=== PATIENT | female | born 1985 | race Caucasian/White ===

== ENCOUNTER 2016-11-20 14:41 | Emergency (ER) | payer OTHER ==
--- NOTE | 2016-11-20 14:47 | PDOC ---
History of Present Illness - History of Present Illness Initial Comments: 11/20/16 15:11 The patient is a 31 year old female, with a significant past medical history of anxiety and depression, who presents to the emergency department sent by PCP for three days of persistent hemoptysis, melena, and abdominal pain. The patient reports numerous episodes of vomiting bright red blood. The patient also reports dark black stool for the past 2 days. The patient states she has not eaten anything in 2 days because she feels nauseous and has diffuse abdominal pain. She reports using pepto bismol yesterday with little to no relief of her symptoms. The patient reports her stomach is weak at baseline and continues to explain that her gag reflex is very easily triggered. She denies chest pain, shortness of breath, headache and dizziness. She denies fever, chills, diarrhea and constipation. She denies dysuria, frequency, urgency and hematuria. Allergies: NKDA <Susu Yun - Last Filed: 11/20/16 15:17> <Hollie Fleming - Last Filed: 11/20/16 21:40> - General Chief Complaint: Bleeding from Anus Stated Complaint: upper and lower gi bleed Time Seen by Provider: 11/20/16 14:47 Past History <Susu Yun - Last Filed: 11/20/16 15:17> - Reproductive History Therapeutic (s) & number: Yes (2 DAYS AGO) - Immunization History Immunization Up to Date: Yes - Psycho/Social/Smoking Cessation Hx Anxiety: No Suicidal Ideation: No Smoking History: Former smoker Have you smoked in the past 12 months: Yes Number of Cigarettes Smoked Daily: 0 If you are a former smoker, when did you quit?: 2014 Hx Alcohol Use: Yes Drug/Substance Use Hx: No Substance Use Type: None <Hollie Fleming - Last Filed: 11/20/16 21:40> - Past Medical History Allergies/Adverse Reactions: Allergies Allergy/AdvReac Type Severity Reaction Status Date / Time No Known Allergies Allergy Verified 11/20/16 14:43 Home Medications: Ambulatory Orders Lamotrigine [Lamictal] 25 mg PO DAILY 11/19/15 Alprazolam [Xanax] 2 mg PO HS 11/20/16 Ondansetron [Zofran Odt -] 4 mg SL TID PRN #21 od.tablet 11/20/16 Oxycodone HCl/Acetaminophen [Percocet 5/325 -] 2 tab PO PRN PRN 11/20/16 Pantoprazole Sodium [Protonix -] 40 mg PO DAILY #30 tablet.ec 11/20/16 Review of Systems - Review of Systems Able to Perform ROS?: Yes Comments:: 11/20/16 15:11 GENERAL/CONSTITUTIONAL: No fever or chills. No weakness. HEAD, EYES, EARS, NOSE AND THROAT: No change in vision. No ear pain or discharge. No sore throat. CARDIOVASCULAR: No chest pain or shortness of breath. RESPIRATORY: No cough, wheezing, or hemoptysis. GASTROINTESTINAL: (+) melena, nausea, vomiting, hemoptysis, abdominal cramps. No diarrhea or constipation. GENITOURINARY: No dysuria, frequency, or change in urination. MUSCULOSKELETAL: No joint or muscle swelling or pain. No neck or back pain. SKIN: No rash NEUROLOGIC: No headache, vertigo, loss of consciousness, or change in strength/ sensation. ENDOCRINE: No increased thirst. No abnormal weight change. HEMATOLOGIC/LYMPHATIC: No anemia, easy bleeding, or history of blood clots. ALLERGIC/IMMUNOLOGIC: No hives or skin allergy. <Susu Yun - Last Filed: 11/20/16 15:17> *Physical Exam - Vital Signs Last Vital Signs Temp Pulse Resp BP Pulse Ox 98.2 F 93 H 20 134/90 100 11/20/16 14:42 11/20/16 14:42 11/20/16 14:42 11/20/16 14:42 11/20/16 14:42 - Physical Exam Comments: 11/20/16 15:12 GENERAL: Awake, alert, and fully oriented, in no acute distress HEAD: No signs of trauma EYES: PERRLA, EOMI, sclera anicteric, conjunctiva clear ENT: (+)Dry mucosa. Auricles normal inspection, hearing grossly normal, nares patent, oropharynx clear without exudates. NECK: Normal ROM, supple, no lymphadenopathy, JVD, or masses LUNGS: Breath sounds equal, clear to auscultation bilaterally. No wheezes, and no crackles HEART: Regular rate and rhythm, normal S1 and S2, no murmurs, rubs or gallops ABDOMEN: Soft, nontender, normoactive bowel sounds. No guarding, no rebound. No masses EXTREMITIES: Normal range of motion, no edema. No clubbing or cyanosis. No cords, erythema, or tenderness NEUROLOGICAL: Cranial nerves II through XII grossly intact. Normal speech, normal gait SKIN: Warm, Dry, normal turgor, no rashes or lesions noted. <Susu Yun - Last Filed: 11/20/16 15:17> ED Treatment Course - LABORATORY CBC & Chemistry Diagram: 11/20/16 15:01 11/20/16 15:01 <Hollie Fleming - Last Filed: 11/20/16 21:40> Medical Decision Making - Medical Decision Making Patient was able to tolerate a PO challenge without any vomiting. She did not have any episodes of vomiting or diarrhea in the ED (she has not had a BM since this morning). Guaiac was normal. I suspect this may be PUD, and counseled her multiple times that she needs outpatient GI follow-up. At this point, her vital signs are stable, H&H is stable. She respnded well to protonix, zofran, and IVF. We discussed the findings on her urine tox, and I explained that using marijuana can predispose to cyclic vomiting, which may have caused her to retch enough to cause a Kylah-Avendaño tear. The dark stools may be related to pepto- bismol, but may also be due to an ulcer. Will need close follow-up. <Hollie Fleming - Last Filed: 11/20/16 21:40> *DC/Admit/Observation/Transfer - Attestations Scribe Attestion: 11/20/16 15:12 Documentation prepared by Susu Yun, acting as medical physics researcher for Hollie Fleming MD, <Susu Yun - Last Filed: 11/20/16 15:17> - Discharge Dispostion Admit: No <Hollie Fleming - Last Filed: 11/20/16 21:40> Diagnosis at time of Disposition: Vomiting Qualifiers: Vomiting type: unspecified Vomiting Intractability: non-intractable Nausea presence: with nausea Qualified Code(s): R11.2 - Nausea with vomiting, unspecified - Discharge Dispostion Disposition: HOME Condition at time of disposition: Improved - Prescriptions Prescriptions: Pantoprazole Sodium [Protonix -] 40 mg PO DAILY #30 tablet.ec Ondansetron [Zofran Odt -] 4 mg SL TID PRN #21 od.tablet PRN Reason: Nausea And/Or Vomiting - Patient Instructions Printed Discharge Instructions: DI for Vomiting -- Adult
[2016-11-20] MEDS ORDERED: ONDANSETRON 4 MG/2 ML VIAL IVPUSH ONE (14:55)
[2016-11-20] MEDS ORDERED: SODIUM CHLORIDE 1,000 ML IV STA (14:55)
[2016-11-20 15:10] VITALS: BP 134/90; PULSE 93; TEMP 98.2; BMI 22.8
[2016-11-20] MEDS ORDERED: ONDANSETRON 4 MG/2 ML VIAL ONE (15:12)
[2016-11-20 15:30] LABS: URINE APPEARANCE Clear; URINE BILIRUBIN Negative (NEGATIVE); URINE BLOOD Trace-lysed (NEGATIVE); URINE COLOR YELLOW; URINE GLUCOSE (UA) Negative (NEGATIVE); URINE KETONE Negative (NEGATIVE); URINE LEUK ESTERASE Trace (NEGATIVE); URINE NITRITE Negative (NEGATIVE); URINE PROTEIN Trace (NEGATIVE); URINE UROBILINOGEN 0.2 E.U/dl (0.2-1.0)
[2016-11-20 15:31] LABS: BASOPHIL 0.2 % (0-2.0); EOSINOPHIL 2.1 % (0-4.5); MCHC 33.4 g/dl (32.0-36.0); MEAN CELL VOLUME 95.9 fl (80-96); MEAN PLT VOLUME 7.7 fl (7.5-11.1); PLATELET COUNT 312 K/MM3 (134-434); RDW 12.5 % (11.6-15.6); WHITE BLOOD COUNT 9.8 K/mm3 (4.0-10.0)
[2016-11-20] MEDS ORDERED: PANTOPRAZOLE SODIUM 40 MG in SODIUM CHLORIDE 100 ML IVPB ONE (15:37)
[2016-11-20] MEDS ORDERED: PANTOPRAZOLE SODIUM 40 MG VIAL ONE (15:46)
[2016-11-20 15:52] LABS: ALBUMIN 4.5 g/dl (3.5-5.0); ALK PHOS 39 U/L (32-92); ANION GAP 9 (8-16); BILIRUBIN,TOTAL 0.6 mg/dl (0.2-1.0); CALCIUM 9.3 mg/dl (8.4-10.2); CO2 23 mmol/L (22-28); CREATININE 0.9 mg/dl (0.6-1.3); GLUCOSE,RANDOM 91 mg/dl (74-106); SGOT/AST 26 U/L (10-42); SGPT/ALT 29 U/L (10-40); TOT PROT 7.5 g/dl (6.4-8.3)
[2016-11-20 17:49] LABS: URINE MARIJUANA THC POSITIVE ng/ml (CUTOFF=50)
== END 2016-11-20 18:14 | disposition home or self-care (01) ==
LOC: FER 14:41
PROC: 3E033GC Introduction of Other Therapeutic Substance into Peripheral Vein, Percutaneous Approach (ICD-10-PCS; principal; 2016-11-20)
PROC: 3E0337Z Introduction of Electrolytic and Water Balance Substance into Peripheral Vein, Percutaneous Approach (ICD-10-PCS; 2016-11-20)
DX: R11.2 Nausea with vomiting, unspecified (principal); F41.9 Anxiety disorder, unspecified; Z87.891 Personal history of nicotine dependence; F32.9 Major depressive disorder, single episode, unspecified
CPT/HCPCS: 36415; 80053; 80307; 81003; 82272; 83690; 84703; 85025; 96361; 96365; 96375; 99284-25

== ENCOUNTER 2018-07-14 17:52 | Emergency (ER) | payer OTHER ==
--- NOTE | 2018-07-14 18:07 | PDOC ---
History of Present Illness - General Chief Complaint: Pain Stated Complaint: LEFT FOOT INTERMITTENT SWELLING AND PAIN SINCE BRONWYN Time Seen by Provider: 07/14/18 18:02 - History of Present Illness Initial Comments: 07/14/18 18:05 33 yo F with h/o anxiety, depression, s/p bunionectomy, and flatfoot reconstruction (03/06/18) who p/w LLE swelling and pain. Patient reports now improved circumferential LLE swelling from ankle to forefoot beginning (07/09/18 ) and resolved (07/13/18). Swelling improved with elevation at night. Patient with continued diffuse, dull, LLE pain extending from ankle to forefoot. Pain worse with weight bearing and ambulation. Denies recent trauma to foot or ankle. Pain not improved with Percocet. Completed 1 week course of Keflex post op, and completed rehabilitation. Patient denies N/V, F,C, CP, SOB, urinary complaints, abdominal pain, diarrhea, constipation, lightheadedness, weakness, sensory changes, skin changes. PMHx: as noted above. Denies h/o DVT, OCP use, recent immobilization. ROS: as noted SHx: Denies IVDA. Allergies: NKDA Past History - Past Medical History Allergies/Adverse Reactions: Allergies Allergy/AdvReac Type Severity Reaction Status Date / Time No Known Allergies Allergy Verified 07/14/18 17:54 Home Medications: Ambulatory Orders Lamotrigine [Lamictal] 50 mg PO DAILY 11/19/15 Hydroxyzine HCl 1 tab PO HS 07/14/18 Psychiatric Problems: Yes (depression) - Reproductive History Therapeutic (s) & number: Yes (2 DAYS AGO) - Immunization History Immunization Up to Date: Yes - Suicide/Smoking/Psychosocial Hx Smoking History: Former smoker Have you smoked in the past 12 months: Yes Number of Cigarettes Smoked Daily: 0 If you are a former smoker, when did you quit?: 2014 'Breaking Loose' booklet given: 11/20/16 Hx Alcohol Use: Yes Drug/Substance Use Hx: No Substance Use Type: None Review of Systems - Review of Systems Comments:: 07/14/18 18:05 GENERAL/CONSTITUTIONAL: No fever or chills. No weakness. HEAD, EYES, EARS, NOSE AND THROAT: No change in vision. No ear pain or discharge. No sore throat. CARDIOVASCULAR: No chest pain or shortness of breath RESPIRATORY: No cough, wheezing, or hemoptysis. GASTROINTESTINAL: No nausea, vomiting, diarrhea or constipation. GENITOURINARY: No dysuria, frequency, or change in urination. MUSCULOSKELETAL: + Left foot and ankle pain. No joint or muscle swelling. No neck or back pain. SKIN: No rash NEUROLOGIC: No headache, vertigo, loss of consciousness, or change in strength/ sensation. ENDOCRINE: No increased thirst. No abnormal weight change HEMATOLOGIC/LYMPHATIC: No anemia, easy bleeding, or history of blood clots. ALLERGIC/IMMUNOLOGIC: No hives or skin allergy. *Physical Exam - Physical Exam Comments: 07/14/18 18:06 GENERAL: Awake, alert, and fully oriented, in no acute distress HEAD: No signs of trauma, normocephalic, atraumatic EYES: PERRLA, EOMI, sclera anicteric, conjunctiva clear ENT:Hearing grossly normal, nares patent, oropharynx clear without exudates. Moist mucosa NECK: Normal ROM, supple, no lymphadenopathy, JVD, or masses LUNGS: No distress, speaks full sentences, clear to auscultation bilaterally HEART: Regular rate and rhythm, normal S1 and S2, no murmurs, rubs or gallops, peripheral pulses normal and equal bilaterally. ABDOMEN: Soft, nontender, normoactive bowel sounds. No guarding, no rebound. No masses EXTREMITIES : Normal inspection, Normal range of motion, no edema. No clubbing or cyanosis. LLE: + L sided 6 cm dorsal incision scar on medial anterior forefoot, and 2 c incision scar on calcaneous. Palpable and symmetric RT and DP pulses. Inability to tolerate weight on LLE, with + limping gait. Absent edema, or skin change. Absent wound, lesion, or dehiscence. SKIN: Warm, Dry, normal turgor, no rashes or lesions noted Medical Decision Making - Medical Decision Making 07/14/18 18:35 33 yo F with h/o anxiety, depression, s/p bunionectomy, and flatfoot reconstruction (03/06/18) who p/w LLE swelling and pain. VSS, AF, A&Ox3. LLE neurovascularly intact. R/o DVT LLE. R/o fracture/dislocation LLE. + Carver foot rules including midfoot ttp, and navicular ttp.. Lo suspicion osteomyelitis , cellulitis, abscess, PAD, compartment syndrome. Ed Course: Left Foot RAD LLE DUPLEX 07/14/18 18:47 If RAD and U/S are unremarkable and neg for DVT and fracture patiewnt is stable for d/c with return precautions. Advised to f/u with ortho and PMD. *DC/Admit/Observation/Transfer Diagnosis at time of Disposition: Left foot pain - Discharge Dispostion Condition at time of disposition: Stable Decision to Admit order: No - Referrals - Patient Instructions Additional Instructions: Please return to the emergency department with any new or worsening symptoms or concerns. Please follow up with your primary care physician within 72 hours. Can take Ibuprofen 600 mg every 4 hours as needed for pain control. - Post Discharge Activity - Attestations Physician Attestion: 07/14/18 18:06 I attest to the information provided in this note.
[2018-07-14 18:10] VITALS: BP 132/80; PULSE 96; TEMP 97.6; BMI 25.6
--- NOTE | 2018-07-14 18:39 | PDOC ---
Attending Attestation - HPI HPI: 07/14/18 19:45 The patient is a 33 year old female with a significant PMH of anxiety, depression and peptic ulcer disease (as a teenager) who presents to the emergency department with left foot pain for about 4 months. The patient reports that she had a flat foot reconstruction and bunionectomy in February of this year. She states that in the past week she has been experiencing worsening pain and swelling in her left foot. The patient states that her swelling is worsened with walking and relieved with rest. She reports that she tried to set up to bee seen my an orthopedic surgeon but couldnt be seen for several weeks. The patient was concerned about her intermittent swelling and constant pain so she came in to the ED. she also reports some associated bruising with her left foot pain. The patient denies any fall or injury. She denies any recent travel or history of blood clots, numbness, weakness, malodor or tingling sensation. She denies any other symptoms. She denies any fever, chills, nausea, vomiting, diarrhea, or urinary symptoms. She denies any chest pain, shortness or breath, headache or dizziness. The patient denies any other complaints. - Physicial Exam PE: 07/14/18 19:45 GENERAL: Awake, alert, and fully oriented, in no acute distress HEAD: No signs of trauma EYES: PERRLA, EOMI, sclera anicteric, conjunctiva clear ENT: Auricles normal inspection, hearing grossly normal, nares patent, oropharynx clear without exudates. Moist mucosa NECK: Normal ROM, supple, no lymphadenopathy, JVD, or masses LUNGS: Breath sounds equal, clear to auscultation bilaterally. No wheezes, and no crackles HEART: Regular rate and rhythm, normal S1 and S2, no murmurs, rubs or gallops ABDOMEN: Soft, nontender, normoactive bowel sounds. No guarding, no rebound. No masses EXTREMITIES: (+)surgical left foot scar. No cellulitis erythema, edema, calf pain or tenderness.Normal range of motion. No clubbing or cyanosis. No cords. Sensation intact throughout. 2 plus DP pulse. NEUROLOGICAL: Cranial nerves II through XII grossly intact. Normal speech, normal gait SKIN: Warm, Dry, normal turgor, no rashes or lesions noted. Documentation prepared by Garce Hermosillo, acting as medical radiation dosimetrist for Anton Granados MD. <Grace Hremosillo - Last Filed: 07/14/18 19:45> - Resident Resident Name: Jl Ochoa - ED Attending Attestation I have performed the following: I have examined & evaluated the patient, The case was reviewed & discussed with the resident, I agree w/resident's findings & plan, Exceptions are as noted - Medical Decision Making 07/14/18 18:47 A portion of this note was documented by scribe services under my direction. I have reviewed the details of the note, within reason, and agree with the documentation with the following case summary and management plan written by me. Patient treated in the ED. Nursing notes are reviewed and incorporated into the medical decision-making. Vital signs reviewed. Vital Signs Temp Pulse Resp BP Pulse Ox 97.6 F 96 H 16 132/80 100 07/14/18 17:53 07/14/18 17:53 07/14/18 17:53 07/14/18 17:53 07/14/18 17:53 33-year-old female with history of flatfoot reconstruction status post bunionectomy in February 2018 presents with several days of left lower extremity swelling and discomfort. This occurred several days ago and started to swell. The patient is a 21 denies any recent traveling. Denies history of blood clots. Stated swelling is occurred but the swelling had now resolved. Patient had attempted make outpatient appointments but the next appointment for a foot doctor was in 2 weeks. Her friends which were nurse's advised patient to get checked in the ER. The patient's symptoms are now resolved. Could this have been edema secondary to inflammation or gravity dependent? There are no skin changes to suggest cellulitis at this time. I agree with resident's finding rule out DVT. If the old shot an x-ray is negative for acute processes, I will advise the patient to elevate the leg and follow-up with the [facility]. 07/14/18 20:46 Foot xray reviewed. No acute findings. Ultrasound reviewed. No blood clot. The patient is reasonably upset for her chronic foot pain and swelling. I advised her that today's findings demonstrate no acute findings, but that she would strongly benefit from a foot surgeon. The patient states that she agrees and she will follow up with an orthopedist. I discussed the physical exam findings, ancillary test results and final diagnoses with the patient. I answered all of the patient's questions. The patient was satisfied with the care received and felt comfortable with the discharge plan and treatment plan. The patient will call their primary care physician within 24 hours to arrange follow-up and will return to the Emergency Department with any new, persistant or worsening symptoms. <Anton Granados - Last Filed: 07/14/18 20:47> Discharge Disposition <Grace Hermosillo - Last Filed: 07/14/18 19:45> - Discharge Dispostion Last Admission D/C Date: 10/06/10 Decision to Admit order: No <RobertaAnton - Last Filed: 07/14/18 20:47> - Diagnosis Left foot pain - Discharge Dispostion Disposition: HOME Condition at time of disposition: Stable - Referrals Referrals: Minh Whitmore MD [Staff Physician] - Casey Mcneal MD [Staff Physician] - Carlin Pina MD [Staff Physician] - Adalid Lan MD [Staff Physician] - - Patient Instructions Printed Discharge Instructions: DI for Foot Pain Additional Instructions: Your xray and ultrasound is negative for acute fracture or blood clot. Please follow up with an orthopedist. Call to schedule an appointment. Please return to the emergency department with any new or worsening symptoms or concerns. Please follow up with your primary care physician within 72 hours. Can take Ibuprofen 600 mg every 6 hours as needed for pain control.
== END 2018-07-14 20:46 | disposition home or self-care (01) ==
LOC: FER 17:52
DX: M79.672 Pain in left foot (principal); F41.8 Other specified anxiety disorders
CPT/HCPCS: 73630-TC-LT; 93971-TC; 99282-25

== ENCOUNTER 2018-11-14 14:34 | Emergency (ER) | payer OTHER ==
--- NOTE | 2018-11-14 14:46 | PDOC ---
Attending Attestation - Resident Resident Name: Sasha Arce - ED Attending Attestation I have performed the following: I have examined & evaluated the patient, The case was reviewed & discussed with the resident, I agree w/resident's findings & plan, Exceptions are as noted - HPI HPI: 11/14/18 15:36 33yo female with 2 month hx of sob/cough/wheezing. Has been treated twice in the past 2 months with steroids and inhalers. States on friday her symptoms worsened and she states the cough worsened and now her chest hurts and she feels she cannot get air in. States she feels very tight. No f/c. No sore throat. No rhinorrhea. No abd pain. No n/v/d. NO dysuria. No le swelling, no recent travel, no calf cramping. States pain when she takes a deep breath. Pt denies rash. Pmhx of anxiety and depression, hx of PUD as a child. - Physicial Exam PE: 11/14/18 15:38 Gen: aaox3, tachypnic, tachy, coughing-bronchospastic cough heent: PERRLA, EOMI, posterior pharynx clear neck: supple, anterior chain lymphadenopathy heart: +s1s2 tachy lungs: coarse bs b/l, wheezing diffusely abd: soft, nt/nd +bs ext: no c/c/e - Medical Decision Making 11/14/18 14:46 I, Dr. Domenica Gomez, DO, attest that this document has been prepared under my direction and personally reviewed by me in its entirety. I further attest, that it accurately reflects all work, treatment, procedures and medical decision -making performed by me. 11/14/18 15:39 a/p: 33yo female with SOB/COUGH/WHEEZING -concern for RAD from bronchitis vs pna vs flu -will send labs, cxr, nebs, steroids, fluids -will need nebs x3 rounds -solumedrol -pt hypoxic upon arrival -dimer given pleuritic cp and hypoxia and tachy -will monitor and reassess 11/14/18 16:43 re-eval: cxr clear still wheezing after 2 duo nebs pulse ox 93% ra will need obs for RAD 11/14/18 16:43 discussed staying overnight and the patient states she cannot stay because she has a for her cousin romeo. States she will come back to the hospital after the . Discussed that her oxygen level is low and she should stay for obs and further treatment. Pt states she will sign out AMA. Discussed AMA decision in full detail and risk of low oxygen and Pt states she will wants to sign out AMA Note: The patient insists on leaving the emergency dept and is signing out against medical advice. The patient understands the risks and complications that may result from the refusal of medical care and admission which includes and permanent disability. The patient has the mental capacity of understanding the risks of refusing care and is capable of making an informed decision. The patient was instructed to return to the emergency department should she change her mind regarding medical care or should her condition worsen. The patient signed the Against Medical Advice form. 11/14/18 17:23 pt will sign out AMA Heart Score/ECG Review - ECG Intrepretation Comment:: 11/14/18 16:15 sinus at 89, 1st degree av block, t wave inversions inferior and laterally, incomplete rbbb, abnl ekg
[2018-11-14 14:48] VITALS: BP 111/68; TEMP 98.1; BMI 25.6
[2018-11-14] MEDS ORDERED: ALBUTEROL SO4 2.5/IPRATROPIUM 0.5 INH SOL 3 ML VIAL.NEB. NEB ONE ×7 (14:49→16:43)
[2018-11-14] MEDS ORDERED: KETOROLAC TROMETHAMINE 15 MG/ML VIAL IVPUSH ONE (15:01)
[2018-11-14] MEDS ORDERED: SODIUM CHLORIDE 0.9% 1000 ML INFUS.BAG IV ONE (15:01)
[2018-11-14] MEDS ORDERED: methylPREDNISolone NA SUCC 125 MG/2 ML VIAL IVPB ONE (15:02)
--- NOTE | 2018-11-14 15:03 | PDOC ---
History of Present Illness - General Chief Complaint: Respiratory Stated Complaint: COUGH & CHEST CONGESTION Time Seen by Provider: 11/14/18 14:41 - History of Present Illness Initial Comments: 11/14/18 14:59 2 months of persistent cough producing yellow phlegm with occasional blood streaks worse over 4 days associated with L lower rib tenderness when coughing and with turning given albuterol neb at urgent care which helped her slightly no fever recorded feels like when she had walking pneumonia when she was younger smoked for several years on and off, last smoked over 2 years ago. feels like she can't breathe and that the airway is tighter. Past History - Past Medical History Allergies/Adverse Reactions: Allergies Allergy/AdvReac Type Severity Reaction Status Date / Time No Known Allergies Allergy Verified 07/14/18 17:54 Home Medications: Ambulatory Orders Lamotrigine [Lamictal] 50 mg PO DAILY 11/19/15 Hydroxyzine HCl 1 tab PO HS 07/14/18 Albuterol 0.083% Nebulizer Nurys [Ventolin 0.083% Nebulizer Soln -] 1 neb NEB ONCE #1 vial 11/14/18 Benzonatate [Tessalon Pearls -] 100 mg PO TID #21 capsule 11/14/18 COPD: No GI Disorders: Yes (ULCER) Psychiatric Problems: Yes (depression) - Reproductive History Therapeutic (s) & number: Yes (2 DAYS AGO) - Immunization History Immunization Up to Date: Yes - Suicide/Smoking/Psychosocial Hx Smoking History: Former smoker Have you smoked in the past 12 months: No Number of Cigarettes Smoked Daily: 0 If you are a former smoker, when did you quit?: 2018 Information on smoking cessation initiated: No 'Breaking Loose' booklet given: 11/20/16 Hx Alcohol Use: No Drug/Substance Use Hx: No Substance Use Type: None *Physical Exam - Vital Signs Last Vital Signs Temp Pulse Resp BP Pulse Ox 98.1 F 96 H 20 111/68 92 L 11/14/18 14:36 11/14/18 14:36 11/14/18 14:36 11/14/18 14:36 11/14/18 14:36 - Physical Exam Comments: 11/14/18 14:58 wprse at L base inspiratory andexpiratory wheeze tenderness to L rib palpation bilateral cervical lymphadenopathy 11/14/18 16:16 Moderate Sedation - Procedure Monitoring Vital Signs: Procedure Monitoring Vital Signs Temperature 98.1 F 11/14/18 14:36 Pulse Rate 96 H 11/14/18 14:36 Respiratory Rate 20 11/14/18 14:36 Blood Pressure 111/68 11/14/18 14:36 O2 Sat by Pulse Oximetry (%) 92 L 11/14/18 14:36 ED Treatment Course - LABORATORY CBC & Chemistry Diagram: 11/14/18 15:20 11/14/18 15:20 - RADIOLOGY Radiology Studies Ordered: Category Date Time Status CHEST PA & LAT [RAD] Stat Radiology 11/14/18 14:53 Ordered - Medications Given in the ED: ED Medications Discontinued Medications Generic Name Dose Route Start Last Admin Trade Name Freq PRN Reason Stop Dose Admin Albuterol/Ipratropium 1 amp 11/14/18 14:49 11/14/18 14:58 Duoneb - NEB 11/14/18 14:50 1 amp ONCE ONE Administration Medical Decision Making - Medical Decision Making 11/14/18 15:16 ED Course: bronchitis vs atypical pna vs asthma vs mono vs influenza r/o PE ekg, cbc, cmp, flu swab, monoscreen, upreg, cxr duoneb, toradol, solumedrol 11/14/18 16:43 still with inspiratory and expiratory wheeze after 2 duoneb O2 sat 93 dose second duoneb liekly patietn will need admission for hypoxia unresponsive steroids nad duoneb, patient expresses desire to leave against medical advise 11/14/18 17:15 ddimer and influenza, negative patient given medication for tessalon perle and albuterol neb will leave [facility], given follow up instructions and strict return precautions. *DC/Admit/Observation/Transfer Diagnosis at time of Disposition: Cough, Shortness of breath, Chest congestion - Discharge Dispostion Disposition: AGAINST MEDICAL ADVICE Condition at time of disposition: Good - Prescriptions Prescriptions: Albuterol 0.083% Nebulizer Nurys [Ventolin 0.083% Nebulizer Soln -] 1 neb NEB ONCE #1 vial Benzonatate [Tessalon Pearls -] 100 mg PO TID #21 capsule - Referrals Referrals: Jakub Chi [Primary Care Provider] - - Patient Instructions Printed Discharge Instructions: DI for Cough -- Adult, DI for Viral Syndrome Additional Instructions: It is recommended that you be admitted for further observation in the hospital and treatment for your cough and shortness of breath. The risks of leaving the hospital without complete evaluation for your symptoms include , cardiac arrest, heart attack, stroke, loss of consciousness, respiratory distress and/or further difficulty breathing. These risks have been discussed with your for > 45min. You express understanding of these risks and still desire to leave the hospital against medical advice. It is recommended that you see your primary care doctor within 3-5 days for further workup and evaluation. Return to the ED if you experience worsening shortness of breath, coughing up bright red blood, fever > 102F, chest pain, loss of consciousness or lightheadedness. You have a prescription for Tessalon Perle and Albuterol Neb sent to your pharmacy. Please take medications as indicated. - Post Discharge Activity
[2018-11-14] MEDS ORDERED: methylPREDNISolone NA SUCC 125 MG/2 ML VIAL ONE (15:30)
[2018-11-14] MEDS ORDERED: KETOROLAC TROMETHAMINE 15 MG/ML VIAL ONE (15:31)
[2018-11-14 15:33] LABS: BASO % 0.3 % (0-2.0); HEMATOCRIT 42.2 % (32.4-45.2); LYMPH % 14.2 % (8-40); MCH 29.5 pg (25.7-33.7); MCHC 33.3 g/dl (32.0-36.0); MEAN CELL VOLUME 88.8 fl (80-96); MEAN PLT VOLUME 7.7 fl (7.5-11.1); MONO % 4.7 % (3.8-10.2); NEUT % 75.8 % (42.8-82.8); PLATELET COUNT 324 K/MM3 (134-434); RBC 4.75 M/mm3 (3.60-5.2); RDW 12.2 % (11.6-15.6); WHITE BLOOD COUNT 12.1 K/mm3 (4.0-10.8)
[2018-11-14 15:43] LABS: ALK PHOS 56 U/L (45-117); ANION GAP 8 MMOL/L (8-16); BILIRUBIN,TOTAL 0.7 mg/dl (0.2-1); BLOOD UREA NITROGEN 9 mg/dl (7-18); CALCIUM 9.4 mg/dl (8.5-10); CHLORIDE 104 mmol/L (98-107); CO2 24 mmol/L (21-32); CREATININE 0.8 mg/dl (0.55-1.3); GLUCOSE,RANDOM 117 mg/dl (74-106); SGOT/AST 25 U/L (15-37); SGPT/ALT 18 U/L (13-61); SODIUM 136 mmol/L (136-145); TOT PROT 6.9 g/dl (6.4-8.2)
[2018-11-14 17:10] VITALS: PULSE 94
--- NOTE | 2018-11-15 10:57 | EKG ---
Test Reason : Blood Pressure : / mmHG Vent. Rate : 089 BPM Atrial Rate : 089 BPM P-R Int : 220 ms QRS Dur : 078 ms QT Int : 384 ms P-R-T Axes : 053 054 -24 degrees QTc Int : 467 ms SINUS RHYTHM WITH 1ST DEGREE A-V BLOCK POSSIBLE LEFT ATRIAL ENLARGEMENT T WAVE ABNORMALITY, CONSIDER INFERIOR ISCHEMIA PROLONGED QT ABNORMAL ECG WHEN COMPARED WITH ECG OF 03-OCT-2010 01:13, T WAVE INVERSION NOW EVIDENT IN INFERIOR LEADS Confirmed by JOSE ALAN MD ([id number]) on 11/15/2018 10:57:32 AM Referred By: Confirmed By:JOSE ALAN MD
== END 2018-11-14 17:32 | disposition left against medical advice (07) ==
LOC: FER 14:34
PROC: 3E0F7GC Introduction of Other Therapeutic Substance into Respiratory Tract, Via Natural or Artificial Opening (ICD-10-PCS; principal; 2018-11-14)
PROC: 3E0333Z Introduction of Anti-inflammatory into Peripheral Vein, Percutaneous Approach (ICD-10-PCS; 2018-11-14)
PROC: 3E033GC Introduction of Other Therapeutic Substance into Peripheral Vein, Percutaneous Approach (ICD-10-PCS; 2018-11-14)
PROC: 3E0337Z Introduction of Electrolytic and Water Balance Substance into Peripheral Vein, Percutaneous Approach (ICD-10-PCS; 2018-11-14)
DX: R07.81 Pleurodynia (principal); R09.89 Other specified symptoms and signs involving the circulatory and respiratory systems; R06.02 Shortness of breath; R05 Cough; Z87.891 Personal history of nicotine dependence; F32.9 Major depressive disorder, single episode, unspecified
CPT/HCPCS: 36415; 71046-TC-FY; 80053; 84703; 85025; 85379; 86308; 87804; 93005; 99282-25; J7030

== ENCOUNTER 2019-11-23 11:40 | Emergency (ER) | payer OTHER ==
[2019-11-23 11:46] VITALS: BP 113/75; PULSE 71; TEMP 97.8; BMI 27.4
[2019-11-23 12:27] LABS: HCG,QUALITATIVE URINE NEGATIVE
[2019-11-23 12:40] LABS: EPITHELIAL CELLS FEW /hpf
[2019-11-23] MEDS ORDERED: ACETAMINOPHEN 325 MG TABLET (FP) PO ONE (12:53)
--- NOTE | 2019-11-23 12:55 | PDOC ---
History of Present Illness - General Chief Complaint: Vaginal Bleeding Stated Complaint: VAGINAL BLEEDING, ABD PAIN Time Seen by Provider: 11/23/19 11:46 - History of Present Illness Initial Comments: Grecia Portillo is a 34yo woman with a PMH of depression, suboxone use, molar , known L ovarian cyst who presents with low abdominal pain, L>R, and vaginal bleeding since this morning. She also reports hand pain and numbness with typing; the symptoms also occur while laying down but resolve with changing arm position. Ms Portillo additionally c/o dry skin and increased hair loss. The hand numbness, dry skin, and hair loss have been present for several months. She is concerned that her thyroid is low as her mother had low thyroid. 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 This morning, she woke up "with blood everywhere" and severe low abdominal cramping. The symptoms were similar to her typical period, but she feels it is not the correct time has she generally has a very regular menstrual cycle. She took some ibuprofen with improvement in the pain. Due to her previous molar , she was concerned that it had come back and was causing cancer, as she was told that was a risk. She says that there is no possibility she is currently . 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 Past History - Past Medical History Allergies/Adverse Reactions: Allergies Allergy/AdvReac Type Severity Reaction Status Date / Time No Known Allergies Allergy Verified 11/23/19 11:41 Home Medications: Ambulatory Orders Alprazolam [Xanax] 1 mg PO ASDIR PRN 11/23/19 Buprenorphine/Naloxone [Suboxone 2 mg/0.5MG Sl Film -] 1 each SL DAILY 11/23/19 Lamotrigine [Lamictal] 200 mg PO DAILY 11/23/19 COPD: No GI Disorders: Yes (ULCER) Psychiatric Problems: Yes (depression) - Reproductive History Therapeutic (s) & number: Yes (2 DAYS AGO) - Immunization History Immunization Up to Date: Yes - Psycho Social/Smoking Cessation Hx Smoking History: Unknown if ever smoked Have you smoked in the past 12 months: Yes Number of Cigarettes Smoked Daily: 0 If you are a former smoker, when did you quit?: 2014 'Breaking Loose' booklet given: 11/20/16 Hx Alcohol Use: Yes Drug/Substance Use Hx: No Substance Use Type: None Review of Systems - Review of Systems Able to Perform ROS?: No Comments:: General: No fevers, no chills, no weight or appetite change, no malaise HEENT: No changes in vision, no changes in hearing, no congestion, no sore throat CV: No chest pain, no palpitations, no LE edema Pulm: No SOB, no cough, no wheezing GI: No nausea or vomiting, no change in bowel habits, no melena : No frequency, no urgency, no dysuria. See HPI Musc: No back pain, no joint swelling, no recent injury Skin: No rash, no lesions, no erythema Endo/Rheum: No excessive thirst, no heat/cold intolerance. +hair loss, +dry skin Heme: No unusual bruising or bleeding, no swollen glands Neuro: No syncope, no numbness/tingling, no focal weakness Vasc: No claudication Psych: No recent change in mood, no SI or HI *Physical Exam - Vital Signs Last Vital Signs Temp Pulse Resp BP Pulse Ox 97.8 F 71 18 113/75 100 11/23/19 11:40 11/23/19 11:40 11/23/19 11:40 11/23/19 11:40 11/23/19 11:40 - Physical Exam General: Comfortable, no acute distress HEENT: Atraumatic, PERRL, EOMI, MMM, voice normal, normal neck ROM Cards: RRR, no murmur appreciated Pulm: Comfortable on room air, clear to auscultation bilaterally Abd: Soft, nontender, nondistended : Normal external genitalia. Small amount of dark red blood in vaginal canal. No CMT, no adnexal TTP Ext: Atraumatic. No LE edema. ROM intact. WWP Skin: Normal color. Patches of dry, scaly skin on b/l hands c/w eczema Neuro: A&Ox3, CN grossly intact, normal speech, motor/sensory grossly intact and symmetric Psych: Mood appropriate to situation ED Treatment Course - LABORATORY CBC & Chemistry Diagram: 11/23/19 13:05 - ADDITIONAL ORDERS Additional order review: Laboratory Results 11/23/19 11:45 Urine Color Yellow Urine Appearance Clear Urine pH 5.5 Urine Protein Negative Urine Glucose (UA) Negative Urine Ketones Negative Urine Blood 2+ H Urine Nitrite Negative Urine Bilirubin Negative Urine Urobilinogen 0.2 Ur Leukocyte Esterase Negative Urine RBC 20-40 Urine WBC 0-2 Ur Transition Epith Cell Few Urine HCG, Qual Negative - RADIOLOGY Radiology Studies Ordered: Category Date Time Status TRANSVAGINAL ULTRASOUND US [US] Stat Ultrasound 11/23/19 12:53 Ordered Medical Decision Making - Medical Decision Making 11/23/19 12:54 Grecia Portillo is a 34yo woman with a PMH of depression, suboxone use, molar , known L ovarian cyst who presents with multiple complaints including low abdominal pain, L>R, and vaginal bleeding that started today. She also reports hand pain and numbness with typing for several months as well as dry skin and increased hair loss. She is concerned about the symptoms as her mother has low thyroid, and she had a molar last year that she is concerned came back. - Ddx includes abnormal menstrual period, , miscarriage, ruptured cyst. Less likely ovarian torsion as main complaint is vaginal bleeding - Hand pain, numbness most likely carpal tunnel. Will recommend symptomatic treatment, PMD follow up. Dry skin c/w eczema. Will check TSH, but pt advised to follow up with her PMD - CBC, CMP, TSH, UA, UCx, urine preg - TVUS - Acetaminophen 11/23/19 15:58 - US without any significant abnormalities - Labs unremarkable - D/w patient. Will give perfect bind machine operator to follow up. Should see PMD within the next 1-2 weeks as well. Discussed with Dr Alexis Hodges PGY2 Discharge - Discharge Information Problems reviewed: Yes Clinical Impression/Diagnosis: Pelvic pain Condition: Stable Disposition: HOME - Admission No - Follow up/Referral Referrals: Minh Chi MD [Primary Care Provider] - [facility] [Provider Group] - Patient Discharge Instructions Patient Printed Discharge Instructions: DI for Pelvic Pain Additional Instructions: Discharge Instructions: You were seen in the emergency department for lower abdominal pain and vaginal bleeding. Your blood tests and ultrasound did not show any concerning abnormalities. Home Care and Follow Up: - You may use over the counter medications as needed for pain at home. 650- 1000mg acetaminophen (Tylenol) or 600mg ibuprofen (Motrin or Advil) can be used every 6-8 hours. If needed for continued pain, these medications may be alternated every 3-4 hours. For example, if you take ibuprofen at 9am, you may take acetaminophen at noon, ibuprofen at 3pm, etc. - It is strongly recommended that you take ibuprofen with food to help prevent stomach irritation. - You may buy a numbing patch that contains lidocaine (the patch is 4% lidocaine ) that can be placed over the areas of greatest pain. The lidocaine patch may be placed for 12 hours then removed for 12 hours. - Try using an ice pack for 20 minutes every hour or a heating pad for additional pain control. These should NOT be used over the lidocaine patch, but you may place them over the areas of pain while the patch is off. - Do not stop moving around. As much as you can tolerate, continue to do light exercise and stretching exercises. Increase your activity level as much as you can tolerate daily. - Please see a perfect bind machine operator within the next 1-2 weeks for follow up. You have been given information for the [facility] - Seek immediate medical care if you have significant worsening of your symptoms , you are soaking through multiple pads per hour for at least 2-3 hours, you become short of breath or lightheaded, or you have any other medical emergency. - Post Discharge Activity
[2019-11-23 13:20] LABS: BASO % 0.4 % (0-2.0); EOS % 2.1 % (0-4.5); HEMATOCRIT 38.3 % (32.4-45.2); HEMOGLOBIN 13.1 GM/dl (10.7-15.3); MCH 31.4 pg (25.7-33.7); MCHC 34.2 g/dl (32.0-36.0); MEAN CELL VOLUME 91.6 fl (80-96); MEAN PLT VOLUME 7.9 fl (7.5-11.1); MONO % 4.8 % (3.8-10.2); NEUT % 75.7 % (42.8-82.8); PLATELET COUNT 275 K/MM3 (134-434); RBC 4.18 M/mm3 (3.60-5.2); RDW 12.7 % (11.6-15.6); WHITE BLOOD COUNT 10.1 K/mm3 (4.0-10.8)
[2019-11-23] MEDS ORDERED: ACETAMINOPHEN 325 MG TABLET (FP) ONE (13:25)
--- NOTE | 2019-11-23 13:45 | PDOC ---
Attending Attestation - Resident Resident Name: Kitty Hodges - ED Attending Attestation I have performed the following: I have examined & evaluated the patient, The case was reviewed & discussed with the resident, I agree w/resident's findings & plan, Exceptions are as noted - HPI HPI: 11/23/19 18:27 34 years old past medical history significant for ovarian cyst presents emergency department with sudden onset lower abdominal discomfort now improved Patient also with complaint of bilateral hand tingling when she wakes up in the morning Abdominal comfort was sudden in onset and is gradually resolving it is associated with irregular menses - Physicial Exam PE: 11/23/19 18:27 Vitals: Triage Vital signs reviewed General Appearance: No acute distress, well nourished well developed, Head: Atraumatic, Neck: Supple; no Nucal rigidity Chest Wall: Nontender Cardiac: Regular rate and rhythym, no murmurs, no rubs, no gallops, Lungs: Clear to auscultation bilateral, good air movement bilaterally, Abdomen: Soft, non distended, normal bowel sounds, non tender to palpation Extremities: Full range of motion to all extremities, no cyanosis, clubbing, or edema Skin: Warm and dry, no rashes or lesions, no rash, no petechiae Psych: Normal mood, normal affect - Medical Decision Making 11/23/19 18:27 Well-appearing no apparent distress history and examination reassuring no abdominal pain on exam transvaginal ultrasound demonstrates no acute pathology patient feels much better differential diagnosis includes ruptured ovarian cyst versus gas for his constipation. No fever no white count labs otherwise within normal limits she will follow-up with her primary doctor as well as [facility] [employer] this week Findings, need for follow-up and strict return instructions discussed with patient.
== END 2019-11-23 16:10 | disposition home or self-care (01) ==
LOC: FER 11:40
DX: R10.2 Pelvic and perineal pain (principal); F32.9 Major depressive disorder, single episode, unspecified; F11.90 Opioid use, unspecified, uncomplicated
CPT/HCPCS: 36415; 76830-TC; 76856-TC; 81003; 81015; 84443; 84703; 85025; 87086; 99284-25

== ENCOUNTER 2022-01-27 07:01 | Emergency (ER) | payer OTHER ==
[2022-01-27 07:33] VITALS: BP 111/72; PULSE 86; TEMP 97; BMI 21.5
[2022-01-27] MEDS ORDERED: DIPHTH,PERTUSS(ACELL),TET 0.5 ML DISP.SYRIN IM ONE ×2 (08:06→08:20)
== END 2022-01-27 08:47 | disposition home or self-care (01) ==
LOC: JER 07:01
PROC: 3E0234Z Introduction of Serum, Toxoid and Vaccine into Muscle, Percutaneous Approach (ICD-10-PCS; principal; 2022-01-27)
DX: S61.451A Open bite of right hand, initial encounter (principal); Y04.1XXA Assault by human bite, initial encounter
CPT/HCPCS: 90471; 90715; 99283-25